=== PATIENT | female | born 1975 ===

== ENCOUNTER → 2017-06-26 | Outpatient (CLI) | payer OTHER ==
[~2017-06-26] MED LIST: CALCIUM 600 + D1 TAB PO; ESTROVEN 155 M155 MG PO; INTESTINEX680 MG PO; KETO10TA2 PO; PERCOCET 5/3251 TAB PO; PROTONIX40 MG PO; TRAM1TAB98 PO; WELLBUTRIN SR150 MG PO
== END | disposition home or self-care (01) ==
LOC: SONOGRAMA 12:06
DX: M79.641 Pain in right hand (principal); M79.642 Pain in left hand

== ENCOUNTER 2017-09-11 08:16 | Day surgery (SDC) | payer OTHER | END 2017-09-11 11:50 | disposition home or self-care (01) | LOC: AMB-ENDOS 08:16 | DX: K59.02 Outlet dysfunction constipation (principal); N80.8 Other endometriosis; K58.1 Irritable bowel syndrome with constipation ==